=== PATIENT | male | born 1965 | race African-American/Black ===

== ENCOUNTER 2019-04-27 04:10 | Emergency (ER) | payer OTHER ==
[2019-04-27 05:00] VITALS: BP 112/82; PULSE 81; TEMP 98.6; BMI 29.2
--- NOTE | 2019-04-27 05:06 | PDOC ---
History of Present Illness - General Chief Complaint: Shortness of Breath Stated Complaint: SOB, TINGLING/LT ARM Time Seen by Provider: 04/27/19 05:05 History Source: Patient Exam Limitations: No Limitations - History of Present Illness Initial Comments: Dandy Farris is a 53 yo M who presents to the [facility] stating he feels short of breath, has left arm tingling, has right forearm pain, and is extremely nervous that something is wrong with him. The patient states his SOB has been happening occasionally at work. He says the left arm tingling started to bother him around 6 pm this evening. The right fore-arm pain has been ongoing for several days. The patient denies recent fevers, chills, or infections. Denies chest pain, back pain, headache, nausea, vomiting, go pain, blurry vision, unsteady gait, weakness, numbness, dysuria, frequency, or urgency. PCP: None PSH: None reported Social Hx: Denies smoking, drinking, or other substance usage. Allergies: NKA, NKDA Past History - Past Medical History Allergies/Adverse Reactions: Allergies Allergy/AdvReac Type Severity Reaction Status Date / Time No Known Allergies Allergy Verified 04/27/19 05:08 Home Medications: Ambulatory Orders NK [No Known Home Medication] 04/27/19 - Suicide/Smoking/Psychosocial Hx Smoking History: Never smoked Have you smoked in the past 12 months: No Information on smoking cessation initiated: No Hx Alcohol Use: No Drug/Substance Use Hx: No Review of Systems - Review of Systems Able to Perform ROS?: Yes Comments:: CONSTITUTIONAL: Absent: fever, no chills, no fatigue EYES: Absent: visual changes ENT: Absent: ear pain, no sore throat CARDIOVASCULAR: Absent: chest pain, no palpitations RESPIRATORY: Present: SOB Absent: cough GI: Absent: abdominal pain, no nausea, no vomiting, no constipation, no diarrhea GENITOURINARY: Absent: dysuria, no frequency, no hematuria MUSKULOSKELETAL: Absent: back pain, no arthralgia, no myalgia SKIN: Absent: rash NEUROLOGIC: Present: paresthesia Absent: headache, focal weakness, dizziness, unsteady gait, seizure, mental status changes, bladder or bowel incontinence PSYCHIATRIC: Present: Anxiety Absent: depression, suicidal or homicidal ideation, hallucinations. *Physical Exam - Vital Signs Last Vital Signs Temp Pulse Resp BP Pulse Ox 98.6 F 81 22 H 112/82 100 04/27/19 04:20 04/27/19 04:20 04/27/19 04:20 04/27/19 04:20 04/27/19 04:20 - Physical Exam Comments: GENERAL: Well developed, well nourished. Awake and alert. Mild distress. HEENT: Normocephalic, atraumatic. PERRLA, EOMI. No conjunctival pallor. Sclera are non- icteric. Moist mucous membranes. Oropharynx is clear. NECK: Supple. Full ROM. No JVD. No lymphadenopathy. CARDIOVASCULAR: Regular rate and rhythm. No murmurs, rubs, or gallops. Distal pulses are 2+ and symmetric. PULMONARY: No evidence of respiratory distress. Lungs clear to auscultation bilaterally. No wheezing, rales or rhonchi. ABDOMINAL: Soft. Non-tender. Non-distended. No rebound or guarding. No organomegaly. Normoactive bowel sounds. MUSCULOSKELETAL Normal range of motion at all joints. No bony deformities or tenderness. No CVA tenderness. EXTREMITIES: No cyanosis. No clubbing. No edema. No calf tenderness. SKIN: Warm and dry. Normal capillary refill. No rashes. No jaundice. NEUROLOGICAL: Alert, awake, appropriate. Cranial nerves 2-12 intact. No deficits to light touch in face, upper extremities and lower extremities. No motor deficits in the in face, upper extremities and lower extremities. Normal speech. Gait is normal without ataxia. PSYCHIATRIC: Patient is noticeably anxious. Cooperative. Good eye contact. Appropriate mood and affect. ED Treatment Course - LABORATORY CBC & Chemistry Diagram: 04/27/19 05:23 04/27/19 05:23 Medical Decision Making - Medical Decision Making Dandy Farris is a 53 yo M who presents to the [facility] stating he feels short of breath, has left arm tingling, has right forearm pain, and is extremely nervous that something is wrong with him. The patient states his SOB has been happening occasionally at work. He says the left arm tingling started to bother him around 6 pm this evening. The right fore-arm pain has been ongoing for several days. Vital Signs Temp Pulse Resp BP Pulse Ox 98.6 F 81 22 H 112/82 100 04/27/19 04:20 04/27/19 04:20 04/27/19 04:20 04/27/19 04:20 04/27/19 04:20 DDx IBNLT: PNA, ACS/IA, pneumothorax, electrolyte/metabolic disturbance, anxiety /panic attack Plan: Labs, CXR, EKg, analgesia, anxiolytic, re-assess. Labs: elevated BUN, respiratory alkalosis - Hydrating patient - Giving xanax EKG: NS rate of 69, narrow complexes, no ST elevations or depressions, TWI in lead 3, pr - 186, QTc - 409. Re-assessment: Patient feels much better and now has no complaints in the ED. He requests to be discharged so he can goto his appointment with his PCP Dr. Gomez this afternoon. Patient was likely experiencing an anxiety attack. Disposition: DC home with PCP follow up today. - Return precautions discussed with patient. *DC/Admit/Observation/Transfer Diagnosis at time of Disposition: Anxiety attack - Discharge Dispostion Disposition: HOME Condition at time of disposition: Improved Decision to Admit order: No - Referrals Referrals: Mamadou Gomez MD [Primary Care Provider] - - Patient Instructions Printed Discharge Instructions: Anxiety and Panic Attacks (Alternative Therapy) Additional Instructions: We looked at your blood and found that you are a bit dehydrated for which we gave you a liter of fluid. We found no abnormalities in your electrolytes or complete blood count. We think you might have been experiencing an anxiety attack. Please make sure to follow up with your primary care doctor today at your scheduled appointment to make sure you are feeling okay and being taken care of. Come back to the ER immediately if your pain worsens, you feel short of breath, or have any other new or worsening concerns. Thank you for coming to the [facility] ER. We hope you feel better soon! Print Language: QATARI - Post Discharge Activity
[2019-04-27] MEDS ORDERED: SODIUM CHLORIDE 1,000 ML IV STA (05:21)
[2019-04-27] MEDS ORDERED: ALBUTEROL SO4 2.5/IPRATROPIUM 0.5 INH SOL 3 ML VIAL.NEB. NEB ONE ×2 (05:21→05:26)
[2019-04-27] MEDS ORDERED: IBUPROFEN 400 MG TABLET (FP) PO ONE ×2 (05:22→05:27)
[2019-04-27] MEDS ORDERED: ALPRAZolam 0.25 MG TABLET PO ONE (05:22)
[2019-04-27 05:32] LABS: VENOUS PC02 27.1 mmHg (41-51); VENOUS PH 7.55 (7.31-7.41); VENOUS PO2 56.3 mmHg (30-40)
[2019-04-27 05:34] LABS: BASO % 0.4 % (0-2.0); EOS % 4.5 % (0-4.5); HEMATOCRIT 43.6 % (35.4-49); HEMOGLOBIN 14.8 GM/dL (11.7-16.9); LYMPH % 36.9 % (8-40); MCH 28.5 pg (25.7-33.7); MCHC 33.9 g/dl (32.0-35.9); MEAN PLT VOLUME 7.8 fl (7.5-11.1); MONO % 9.2 % (3.8-10.2); PLATELET COUNT 220 K/MM3 (134-434); RBC 5.19 M/mm3 (4.00-5.60); RDW 13.7 % (11.9-15.9); WHITE BLOOD COUNT 5.7 K/mm3 (4.0-10.0)
[2019-04-27] MEDS ORDERED: ALPRAZolam 0.25 MG TABLET ONE (05:37)
[2019-04-27 05:46] LABS: INR 1.05 (0.83-1.09); PROTHROMBIN TIME (PATIENT) 12.4 SEC (9.7-13.0)
--- NOTE | 2019-04-27 06:03 | PDOC ---
Attending Attestation - Resident Resident Name: Flaquito Rosario - ED Attending Attestation I have performed the following: I have examined & evaluated the patient, The case was reviewed & discussed with the resident, I agree w/resident's findings & plan, Exceptions are as noted - HPI HPI: 04/27/19 07:27 53M here with sob, distal extremity tingling, RUE dull pain for several days. - Physicial Exam PE: 04/27/19 07:28 Agree with exam as documented by resident - Medical Decision Making 04/27/19 07:29 53M here with tingling, sob, unlikely acs, pna, consider anxiety, hyperventilation f/u labs, ekg Symptomatic tx Pt endorses resolution of symptoms Labs unremarkable DC pt has follow up this afternoon
[2019-04-27 06:10] LABS: ALK PHOS 65 U/L (45-117); ANION GAP 8 MMOL/L (8-16); BILIRUBIN,TOTAL 1.3 mg/dL (0.2-1); BLOOD UREA NITROGEN 18.2 mg/dL (7-18); CALCIUM 9.5 mg/dL (8.5-10.1); CHLORIDE 107 mmol/L (98-107); CO2 24 mmol/L (21-32); CREATININE 1.1 mg/dL (0.55-1.3); GLUCOSE,RANDOM 106 mg/dL (74-106); POTASSIUM 3.7 mmol/L (3.5-5.1); SGOT/AST 28 U/L (15-37); SGPT/ALT 35 U/L (13-61); SODIUM 139 mmol/L (136-145); TOT PROT 8.4 g/dl (6.4-8.2)
[2019-04-27 07:38] LABS: N-TERMINAL BNP < 5.0 pg/ml (5-125)
--- NOTE | 2019-04-27 12:46 | EKG ---
Test Reason : Blood Pressure : / mmHG Vent. Rate : 069 BPM Atrial Rate : 069 BPM P-R Int : 186 ms QRS Dur : 088 ms QT Int : 382 ms P-R-T Axes : 076 016 -09 degrees QTc Int : 409 ms NORMAL SINUS RHYTHM EARLY REPOLARIZATION NONSPECIFIC ST ABNORMALITY NO PREVIOUS ECGS AVAILABLE Confirmed by MARYELLEN HAYS MD ([id number]) on 04/27/2019 12:46:42 PM Referred By: Confirmed By:MARYELLEN HAYS MD
== END 2019-04-27 06:50 | disposition home or self-care (01) ==
LOC: JER 04:10
PROC: 3E0F7GC Introduction of Other Therapeutic Substance into Respiratory Tract, Via Natural or Artificial Opening (ICD-10-PCS; principal; 2019-04-27)
PROC: 3E0337Z Introduction of Electrolytic and Water Balance Substance into Peripheral Vein, Percutaneous Approach (ICD-10-PCS; 2019-04-27)
DX: F41.0 Panic disorder [episodic paroxysmal anxiety] (principal)
CPT/HCPCS: 36415; 80053; 82803; 83880; 84484; 85025; 85610; 93005; 93010; 99285-25; J7030

== ENCOUNTER 2022-09-22 03:56 | Day surgery (SDC) | payer OTHER ==
[2022-09-21 15:33] VITALS: BMI 29.4
[2022-09-22] MEDS ORDERED: BUPIVACAINE HCL/PF 0.5% (5MG/ML) 10 ML VIAL ONE (07:23)
[2022-09-22] MEDS ORDERED: SODIUM CHLORIDE 0.9% P/F 10 ML VIAL IJ ONE (07:26)
[2022-09-22] MEDS ORDERED: LIDO 2%/EPI 1:200000 PRESRVFRE (20 ML SDVIAL) INF ONE ×2 (08:20→08:25)
[2022-09-22] MEDS ORDERED: BUPIVACAINE HCL/PF 0.5% (5MG/ML) 10 ML VIAL IJ ONE ×2 (08:23→08:25)
[2022-09-22] MEDS ORDERED: LIDOCAINE HCL/PF 2% SDV 5ML VIAL ONE (08:43)
[2022-09-22] MEDS ORDERED: FENTANYL CITRATE/PF 50 MCG/ML VIAL ONE ×3 (08:43→11:04)
[2022-09-22] MEDS ORDERED: PROPOFOL 20 ML ONE (08:43)
[2022-09-22] MEDS ORDERED: MIDAZOLAM HCL 2 MG/2 ML SINGLE DOSE VIAL ONE (08:44)
[2022-09-22] MEDS ORDERED: KETOROLAC TROMETHAMINE 30 MG/1 ML VIAL ONE (09:15)
[2022-09-22] MEDS ORDERED: DEXAMETHASONE SOD PHOSPHATE 4 MG/1 ML VIAL ONE (09:15)
[2022-09-22] MEDS ORDERED: ONDANSETRON 4 MG/2 ML VIAL ONE (09:15)
[2022-09-22] MEDS ORDERED: oxyCODONE HCL 5 MG TABLET PO PRN ×2 (09:56)
[2022-09-22] MEDS ORDERED: PROMETHAZINE HCL 25 MG/1 ML VIAL IVPB PRN (09:56)
[2022-09-22] MEDS ORDERED: ONDANSETRON 4 MG/2 ML VIAL IVPUSH PRN (09:56)
[2022-09-22] MEDS ORDERED: ACETAMINOPHEN 1000 MG/100 ML BAG IVPB ONE ×2 (09:56→10:08)
[2022-09-22] MEDS ORDERED: ACETAMINOPHEN INJECTION 100 ML IVPB ONE (10:04)
[2022-09-22 11:51] VITALS: RESP 20
[2022-09-22 12:52] VITALS: BP 116/80; PULSE 63; TEMP 96.9
== END 2022-09-22 13:47 | disposition home or self-care (01) ==
LOC: JASU-SURG 03:56 → EDSTATUS 12:41 → JASU-SURG 13:47
PROVIDERS: ATTEND Orthopaedic Surgery
PROC: 0SBC4ZZ Excision of Right Knee Joint, Percutaneous Endoscopic Approach (ICD-10-PCS; principal; 2022-09-22 08:45)
DX: M23.306 Other meniscus derangements, unspecified meniscus, right knee (principal)
CPT/HCPCS: 94760

== ENCOUNTER 2024-01-03 05:08 | Day surgery (SDC) | payer OTHER ==
[2023-12-29 11:00] VITALS: BMI 28.5
[2024-01-03] MEDS: BUPIVACAINE HCL/PF 0.75% 10 ML VIAL NR ONE
[2024-01-03] MEDS ORDERED: LIDOCAINE HCL/PF 1% SDV 5ML VIAL ONE (07:18)
[2024-01-03] MEDS ORDERED: DEXAMETHASONE SOD PHOSPHATE 10 MG/1 ML VIAL ONE (09:44)
[2024-01-03 10:04] VITALS: RESP 18
[2024-01-03] MEDS: LIDOCAINE HCL 1% PRESERVATIVE FREE - 30ML VIAL IJ ONE ×2 (11:16)
[2024-01-03] MEDS: IOHEXOL 180 MG/1 ML ML IJ ONE (11:17)
[2024-01-03] MEDS: DEXAMETHASONE SOD PHOSPHATE 10 MG/1 ML VIAL IVPUSH ONE (11:17)
[2024-01-03 11:43] VITALS: TEMP 97.8
[2024-01-03] MEDS ORDERED: ACETAMINOPHEN 500 MG TABLET (FP) ONE (12:04)
[2024-01-03] MEDS: ACETAMINOPHEN 500 MG TABLET (FP) PO PRN (12:30)
[2024-01-03 13:09] VITALS: BP 138/70; PULSE 80
== END 2024-01-03 13:10 | disposition home or self-care (01) ==
LOC: JASU-SURG 05:08
PROVIDERS: ATTEND Pain Medicine Pain Medicine
PROC: 3E0R3BZ Introduction of Anesthetic Agent into Spinal Canal, Percutaneous Approach (ICD-10-PCS; 2024-01-03)
PROC: 3E0R33Z Introduction of Anti-inflammatory into Spinal Canal, Percutaneous Approach (ICD-10-PCS; principal; 2024-01-03 11:00)
DX: M54.16 Radiculopathy, lumbar region (principal)
CPT/HCPCS: 76000-TC-FY; J1100

== ENCOUNTER 2024-04-05 04:07 | Day surgery (SDC) | payer OTHER ==
[2024-04-03 12:09] VITALS: BMI 28.5
[2024-04-05] MEDS ORDERED: LIDOCAINE HCL/PF 1% SDV 5ML VIAL ONE (07:14)
[2024-04-05] MEDS ORDERED: DEXAMETHASONE SOD PHOSPHATE 10 MG/1 ML VIAL ONE (07:15)
[2024-04-05] MEDS: LIDOCAINE 1% P/F 10 MG/ML VIAL INF ONE ×2 (11:50)
[2024-04-05] MEDS: DEXAMETHASONE SOD PHOSPHATE 10 MG/1 ML VIAL IVPUSH ONE ×2 (11:50)
[2024-04-05] MEDS: IOHEXOL 180 MG/1 ML ML IJ ONE ×2 (11:50)
[2024-04-05 12:15] VITALS: BP 119/76; PULSE 64; RESP 16; TEMP 97.8
[2024-04-05] MEDS ORDERED: ACETAMINOPHEN 500 MG TABLET (FP) PO PRN (16:56)
== END 2024-04-05 13:17 | disposition home or self-care (01) ==
LOC: JASU-SURG 04:07
PROVIDERS: ATTEND Pain Medicine Pain Medicine
PROC: 3E0R3BZ Introduction of Anesthetic Agent into Spinal Canal, Percutaneous Approach (ICD-10-PCS; 2024-04-05)
PROC: 3E0R33Z Introduction of Anti-inflammatory into Spinal Canal, Percutaneous Approach (ICD-10-PCS; principal; 2024-04-05 11:30)
DX: M54.16 Radiculopathy, lumbar region (principal)
CPT/HCPCS: 76000-TC-FY; J1100

== ENCOUNTER 2024-05-04 04:55 | Day surgery (SDC) | payer OTHER ==
[2024-05-02 13:59] VITALS: BMI 28.5
[2024-05-04] MEDS ORDERED: BUPIVACAINE HCL/PF 0.75% 10 ML VIAL ONE (07:30)
[2024-05-04] MEDS ORDERED: LIDOCAINE HCL/PF 1% SDV 5ML VIAL ONE (07:30)
[2024-05-04] MEDS: LIDOCAINE 1% P/F 10 MG/ML VIAL INF ONE (11:28)
[2024-05-04] MEDS: BUPIVACAINE HCL/PF 0.75% 10 ML VIAL NR ONE ×2 (11:28)
[2024-05-04 12:05] VITALS: BP 124/89; PULSE 67; RESP 18; TEMP 97.1
[2024-05-04] MEDS ORDERED: ACETAMINOPHEN 500 MG TABLET (FP) PO PRN (13:22)
== END 2024-05-04 12:15 | disposition home or self-care (01) ==
LOC: JASU-SURG 04:55
PROVIDERS: ATTEND Pain Medicine Pain Medicine
PROC: 3E0T33Z Introduction of Anti-inflammatory into Peripheral Nerves and Plexi, Percutaneous Approach (ICD-10-PCS; 2024-05-04)
PROC: 3E0T3BZ Introduction of Anesthetic Agent into Peripheral Nerves and Plexi, Percutaneous Approach (ICD-10-PCS; principal; 2024-05-04 10:45)
DX: M47.816 Spondylosis without myelopathy or radiculopathy, lumbar region (principal)
CPT/HCPCS: 76000-TC-FY

== ENCOUNTER 2024-06-08 04:29 | Day surgery (SDC) | payer OTHER ==
[2024-06-07 10:35] VITALS: BMI 28.5
[2024-06-08] MEDS ORDERED: BUPIVACAINE HCL/PF 0.75% 10 ML VIAL ONE (07:23)
[2024-06-08] MEDS ORDERED: LIDOCAINE HCL/PF 1% SDV 5ML VIAL ONE (07:23)
[2024-06-08 11:51] VITALS: BP 125/90; PULSE 60; RESP 16; TEMP 97.3
== END 2024-06-08 12:12 | disposition home or self-care (01) ==
LOC: JASU-SURG 04:29
PROVIDERS: ATTEND Pain Medicine Pain Medicine
PROC: 3E0T3BZ Introduction of Anesthetic Agent into Peripheral Nerves and Plexi, Percutaneous Approach (ICD-10-PCS; principal; 2024-06-08 11:13)
DX: M47.816 Spondylosis without myelopathy or radiculopathy, lumbar region (principal)
CPT/HCPCS: 76000-TC-FY

== ENCOUNTER 2024-07-06 04:23 | Day surgery (SDC) | payer OTHER ==
[2024-07-04 10:03] VITALS: BMI 28.5
[2024-07-06] MEDS ORDERED: LIDOCAINE HCL/PF 2% SDV 5ML VIAL ONE (07:43)
[2024-07-06] MEDS ORDERED: DEXAMETHASONE SOD PHOSPHATE 10 MG/1 ML VIAL ONE (07:44)
[2024-07-06] MEDS ORDERED: BUPIVACAINE HCL/PF 0.75% 10 ML VIAL ONE (07:44)
[2024-07-06] MEDS ORDERED: LIDOCAINE HCL/PF 1% SDV 5ML VIAL ONE (07:44)
[2024-07-06] MEDS: LIDOCAINE HCL 1% PRESERVATIVE FREE - 30ML VIAL IJ ONE ×2 (12:02)
[2024-07-06] MEDS: LIDOCAINE HCL/PF 2% SDV 5ML VIAL INF ONE ×2 (12:08)
[2024-07-06] MEDS: BUPIVACAINE HCL/PF 0.75% 10 ML VIAL NR ONE ×2 (12:15)
[2024-07-06] MEDS: DEXAMETHASONE SOD PHOSPHATE 10 MG/1 ML VIAL IM ONE ×2 (12:16)
[2024-07-06 12:43] VITALS: BP 131/87; PULSE 67; RESP 18; TEMP 98.6
[2024-07-06] MEDS ORDERED: ACETAMINOPHEN 500 MG TABLET (FP) PO PRN (12:50)
== END 2024-07-06 13:00 | disposition home or self-care (01) ==
LOC: JASU-SURG 04:23
PROVIDERS: ATTEND Pain Medicine Pain Medicine
PROC: 015B3ZZ Destruction of Lumbar Nerve, Percutaneous Approach (ICD-10-PCS; principal; 2024-07-06 12:30)
DX: M47.816 Spondylosis without myelopathy or radiculopathy, lumbar region (principal)
CPT/HCPCS: 76000-TC-FY; J1100

== ENCOUNTER 2024-08-02 04:37 | Day surgery (SDC) | payer OTHER ==
[2024-07-31 11:12] VITALS: BMI 28.5
[2024-08-02] MEDS ORDERED: DEXAMETHASONE SOD PHOSPHATE 10 MG/1 ML VIAL ONE (12:23)
[2024-08-02] MEDS: LIDOCAINE HCL 1% PRESERVATIVE FREE - 30ML VIAL IJ ONE ×2 (12:33)
[2024-08-02] MEDS: LIDOCAINE HCL/PF 2% SDV 5ML VIAL INF ONE ×3 (12:33→12:43)
[2024-08-02] MEDS: BUPIVACAINE HCL/PF 0.75% 10 ML VIAL NR ONE ×3 (12:36)
[2024-08-02] MEDS: DEXAMETHASONE SOD PHOSPHATE 10 MG/1 ML VIAL IVPUSH ONE ×2 (12:36)
[2024-08-02 13:06] VITALS: BP 120/75; PULSE 70; RESP 18; TEMP 97
[2024-08-02] MEDS ORDERED: ACETAMINOPHEN 500 MG TABLET (FP) ONE (13:14)
[2024-08-02] MEDS: ACETAMINOPHEN 500 MG TABLET (FP) PO PRN (13:21)
== END 2024-08-02 13:35 | disposition home or self-care (01) ==
LOC: JASU-SURG 04:37
PROVIDERS: ATTEND Pain Medicine Pain Medicine
PROC: 015B3ZZ Destruction of Lumbar Nerve, Percutaneous Approach (ICD-10-PCS; principal; 2024-08-02 11:45)
DX: M47.816 Spondylosis without myelopathy or radiculopathy, lumbar region (principal)
CPT/HCPCS: 76000-TC-FY; J1100